=== PATIENT | female | born 1960 | race Caucasian/White ===

== ENCOUNTER 2019-04-23 14:37 | Emergency (ER) | payer MEDICAID, OTHER ==
[~2019-04-23] VITALS: Ht 167.6 cm; Wt 72.6 kg
--- OUTSIDE RECORDS SUMMARY | 2019-04-23 14:42 | XMS REPORT | Continuity of Care Document ---
Author Organization Unknown Address Unknown Allergies Active Description Code Type Severity Reaction Onset Reported/Identified Relationship to Patient Clinical Status Yes NKA Drug N/A N/A Yes NKA Drug N/A N/A Medications Medication Packaging Start Date Stop Date Route Dosage Sig levothyroxine 11/12/2015 11/25/2016 PO 0.125 mg / 1 tab levothyroxine 08/17/2016 01/13/2017 PO 125 mcg / 1 tab levothyroxine 11/25/2016 PO 0.125 mg / 1 tab levothyroxine 01/13/2017 08/30/2017 PO 125 mcg / 1 tab Problems Date Dx Coded Attending Type Code Diagnosis Diagnosed By 01/02/2015 Final V65.5 Person with Feared Complaint in Whom No Diagnosis Was Made 02/25/2015 LIZY FRANCE Final 244.9 Unspecified Hypothyroidism 11/27/2016 Torie Bishop Final E03.9 Hypothyroidism, unspecified Procedures There is no data. Results Test Result Range ANTI-SMOOTH MUSCLE AB - 05/12/11 13:54 F ACTIN ANTIBODY, IGG 5 NRG Surgical Pathology - 08/19/16 17:25 SURGICALPATH Diagnosis over-read by Jignesh Qiu MD. NRG TSH, REFLEX TO FREE T4 - 11/27/16 15:54 TSHR 3.86 mIU/mL 0.34-5.60 TSH - 03/18/18 14:15 TSH 58.83 mIU/L 0.40-4.50 Encounters ACCT No. Visit Date/Time Discharge Status Pt. Type Provider Facility Loc./Unit Complaint [id number] 11/25/2016 13:53:00 11/25/2016 23:59:59 CLS Outpatient [facility] [id number] 08/19/2016 14:21:14 08/19/2016 23:59:59 CLS Outpatient LIZY FRANCE [facility] MTO mole removals mg [id number] 08/17/2016 14:37:00 08/17/2016 23:59:59 CLS Outpatient LIZY FRANCE [facility] MTO f/u meds [id number] 11/12/2015 13:46:00 11/12/2015 23:59:59 CLS Outpatient [facility] [id number] 11/12/2015 13:27:00 11/12/2015 23:59:59 CLS Outpatient [facility] [id number] 11/11/2015 09:22:00 11/11/2015 23:59:59 CLS Outpatient [facility] [id number] 09/23/2015 08:31:00 09/23/2015 23:59:59 CLS Outpatient [facility] [id number] 02/25/2015 14:59:34 02/25/2015 23:59:59 CLS Outpatient Torie Bishop [facility] MT See orders/tm [id number] 02/21/2015 15:08:59 02/21/2015 23:59:59 CLS Outpatient LIZY FRANCE [facility] MTO Ck eye tender and blood/tm [id number] 11/28/2014 10:04:51 11/28/2014 23:59:59 CLS Outpatient LIZY FRANCE [facility] MTO Fu on foot, labs,/tm [facility] 11/27/2016 17:55:58 ACT Document Registration [id number] 10/28/2018 18:20:00 10/28/2018 23:59:59 CLS Outpatient DINA UMANA APRN [facility] [id number] 03/18/2018 13:05:00 Document Registration [id number] 11/27/2016 15:42:00 11/27/2016 23:59:00 DIS Outpatient Torie Bishop [facility] LAB LAB [id number] 08/19/2016 17:22:00 08/19/2016 23:59:00 DIS Outpatient LIZY FRANCE [id number] 02/25/2015 16:24:00 02/25/2015 23:59:00 DIS Outpatient MEISAQIB CERVANTESLIZY Guarantor/person DILEEP ROUTINE MEDICAL EXAM [id number] 11/28/2014 12:22:00 11/28/2014 23:59:00 DIS Outpatient LIZY FRANCE [facility] DILEEP ROUTINE MEDICAL EXAM [id number] 01/02/2015 23:37:00 Document Registration [id number] 05/12/2011 00:00:00 Document Registration
--- OUTSIDE RECORDS SUMMARY | 2019-04-23 14:42 | XMS REPORT ---
Author Author DINA UMANA Organization [facility] Address [address] [place] [address] Care Team Providers Care Plug Paster Name Role Phone DINA UMANA Unavailable PROBLEMS Type Condition ICD9-CM Code [id number] Code Onset Dates Condition Status SNOMED Code Problem Otitis externa of right ear, unspecified chronicity, unspecified type H60.91 Active 2144346 Problem Decreased hearing of both ears H91.93 Active 433556383 Problem Hypothyroidism (acquired) E03.9 Active 375113209 Problem Arthritis M19.90 Active 1169927 ALLERGIES No Known Allergies ENCOUNTERS Encounter Location Date Diagnosis [place] [address] [address] Apr, [facility] [address] [address] March, Hypothyroidism (acquired) E03.9 [facility]ALK [facility] [address] [place] [address] March, Otitis externa of right ear, unspecified chronicity, unspecified type H60.91 ; Decreased hearing of both ears H91.93 and Hypothyroidism (acquired) E03.9 [facility] [address] [address] Jan, Hypothyroidism (acquired) E03.9 [facility] [address] [address] Dec, Contact dermatitis, unspecified contact dermatitis type, unspecified trigger L25.9 [facility] [address] [place] [id number] [place] [address] Dec, Exposure to strep throat Z20.818 and Nasopharyngitis acute J00 [facility] [address] [place] [id number] [address] Sep, Hypothyroidism (acquired) E03.9 and Arthritis M19.90 [facility] [address] [place] [id number] [id number] Aug, Dental examination Z01.20 [facility] [address] [place] [id number] [address] Jun, [facility] [address] [place] [id number] [address] Jun, Bilateral acute serous otitis media, recurrence not specified H65.03 IMMUNIZATIONS No Known Immunizations SOCIAL HISTORY Never Assessed REASON FOR VISIT Establish Care/thyroid, needs refills on thyroid medication--Guillermo Mcdonnell MA PLAN OF CARE VITAL SIGNS Height 66 in 2017-10-14 Weight 166.4 lbs 2017-10-14 Temperature 97.7 degrees Fahrenheit 2017-10-14 Heart Rate 62 bpm 2017-10-14 Respiratory Rate 20 2017-10-14 BMI 26.85 kg/m2 2017-10-14 Blood pressure systolic 134 mmHg 2017-10-14 Blood pressure diastolic 78 mmHg 2017-10-14 MEDICATIONS Medication Instructions Dosage Frequency Start Date End Date Duration Status Levothyroxine Sodium 125 mcg Orally Once a day 1 tablet on an empty stomach in the morning 24h Active Flonase 50 MCG/ACT Nasally Once a day 1 spray in each nostril 24h Jun, 30 day(s) Active Diclofenac Sodium 50 MG Orally Twice a day 1 tablet with food or milk 12h Sep, Jan, 30 day(s) Active RESULTS No Results PROCEDURES No Known procedures INSTRUCTIONS MEDICATIONS ADMINISTERED No Known Medications MEDICAL (GENERAL) HISTORY Type Description Date Medical History graves disease Medical History Arthritis Surgical History partial hysterectomy Surgical History section x3 Surgical History carpet tunnel left wrirst Hospitalization History childbirth only
--- OUTSIDE RECORDS SUMMARY | 2019-04-23 14:42 | XMS REPORT ---
Author Author DINA UMANA Organization [facility] Address [address] [place] [address] Care Team Providers Care Finishing Tunnel Operator Name Role Phone DINA UMANA Unavailable PROBLEMS Type Condition ICD9-CM Code [id number] Code Onset Dates Condition Status SNOMED Code Problem Otitis externa of right ear, unspecified chronicity, unspecified type H60.91 Active 6346928 Problem Decreased hearing of both ears H91.93 Active 459677095 Problem Hypothyroidism (acquired) E03.9 Active 824463179 Problem Arthritis M19.90 Active 6552162 ALLERGIES No Information ENCOUNTERS Encounter Location Date Diagnosis [facility] [address] [address] March, Hypothyroidism (acquired) E03.9 [facility] [address] [address] March, Otitis externa of right ear, unspecified chronicity, unspecified type H60.91 ; Decreased hearing of both ears H91.93 and Hypothyroidism (acquired) E03.9 [facility] [address] [place] [id number] [place] [address] Jan, Hypothyroidism (acquired) E03.9 [facility] [address] [address] Dec, Contact dermatitis, unspecified contact dermatitis type, unspecified trigger L25.9 [facility] WALK IN [facility] [address] [address] Dec, Exposure to strep throat Z20.818 and Nasopharyngitis acute J00 [facility] [address] [place] [id number] [place] [address] Sep, Hypothyroidism (acquired) E03.9 and Arthritis M19.90 [facility] [address] [facility] [id number] [id number] Aug, Dental examination Z01.20 [facility] [address] [place] [address] [id number] [address] Jun, [facility] [address] [place] [id number] [address] Jun, Bilateral acute serous otitis media, recurrence not specified H65.03 IMMUNIZATIONS No Known Immunizations SOCIAL HISTORY Never Assessed REASON FOR VISIT lab results PLAN OF CARE VITAL SIGNS MEDICATIONS Unknown Medications RESULTS No Results PROCEDURES No Known procedures INSTRUCTIONS MEDICATIONS ADMINISTERED No Known Medications MEDICAL (GENERAL) HISTORY Type Description Date Medical History graves disease Medical History Arthritis Surgical History partial hysterectomy Surgical History section x3 Surgical History carpet tunnel left wrirst Hospitalization History childbirth only
--- OUTSIDE RECORDS SUMMARY | 2019-04-23 14:42 | XMS REPORT ---
Author Author JINNY HEARD Organization [facility] Address [address] [place] [address] Care Team Providers Care Vocational Rehabilitation Counselor Name Role Phone JINNY HEARD Unavailable PROBLEMS Type Condition ICD9-CM Code BEQ43-FV Code Onset Dates Condition Status SNOMED Code Problem Otitis externa of right ear, unspecified chronicity, unspecified type H60.91 Active 9555768 Problem Decreased hearing of both ears H91.93 Active 953341031 Problem Hypothyroidism (acquired) E03.9 Active 113715097 Problem Arthritis M19.90 Active 4451401 ALLERGIES No Known Allergies ENCOUNTERS Encounter Location Date Diagnosis [facility] [address] [address] Oct, [facility] IN [facility] [address] [address] Sep, Bacterial conjunctivitis H10.9 [place] [address] [address] Aug, [facility] [address] [address] Aug, [place] [address] [address] March, Hypothyroidism (acquired) E03.9 [facility] IN [facility] [address] [address] March, Otitis externa of right ear, unspecified chronicity, unspecified type H60.91 ; Decreased hearing of both ears H91.93 and Hypothyroidism (acquired) E03.9 [facility] [address] [address] Jan, Hypothyroidism (acquired) E03.9 [facility] [address], [place] [address] 04 Dec, 2017 Contact dermatitis, unspecified contact dermatitis type, unspecified trigger L25.9 [facility]ALK IN [facility] [address] [place] [address] 01 Dec, 2017 Exposure to strep throat Z20.818 and Nasopharyngitis acute J00 [place] [address] [place] [id number] [place] [address] Sep, Hypothyroidism (acquired) E03.9 and Arthritis M19.90 [facility] [address] [id number] Aug, Dental examination Z01.20 [place] [address] [place] [id number] [place] [address] Jun, [place] [address] [address] Jun, Bilateral acute serous otitis media, recurrence not specified H65.03 IMMUNIZATIONS No Known Immunizations SOCIAL HISTORY Never Assessed REASON FOR VISIT Left eye c/o started this morning JStrasserRN PLAN OF CARE Activity Details Follow Up w/ PCP Reason:if symptoms worsen or not improving VITAL SIGNS Height 66 in 2018-10-11 Weight 167.8 lbs 2018-10-11 Temperature 97.6 degrees Fahrenheit 2018-10-11 Heart Rate 78 bpm 2018-10-11 Respiratory Rate 20 2018-10-11 BMI 27.08 kg/m2 2018-10-11 Blood pressure systolic 110 mmHg 2018-10-11 Blood pressure diastolic 62 mmHg 2018-10-11 MEDICATIONS Medication Instructions Dosage Frequency Start Date End Date Duration Status Levothyroxine Sodium 125 mcg TAKE ONE TABLET BY MOUTH ONCE A DAY ON AN EMPTY STOMACH IN THE MORNING. 90 days Active Sulfacetamide Sodium 10 % Ophthalmic every 6 hrs 1 drop into affected eye 6h Sep, 7 days Active RESULTS No Results PROCEDURES No Known procedures INSTRUCTIONS MEDICATIONS ADMINISTERED No Known Medications MEDICAL (GENERAL) HISTORY Type Description Date Medical History graves disease Medical History Arthritis Surgical History partial hysterectomy Surgical History section x3 Surgical History carpet tunnel left wrirst Hospitalization History childbirth only
--- OUTSIDE RECORDS SUMMARY | 2019-04-23 14:42 | XMS REPORT ---
Author Author DINA UMANA Organization [facility] Address [address] [place] [address] Care Team Providers Care Athletic Monitor Name Role Phone DINA UMANA Unavailable PROBLEMS Type Condition ICD9-CM Code RCG63-UE Code Onset Dates Condition Status SNOMED Code Problem Otitis externa of right ear, unspecified chronicity, unspecified type H60.91 Active 9083248 Problem Decreased hearing of both ears H91.93 Active 181209525 Problem Hypothyroidism (acquired) E03.9 Active 831340447 Problem Arthritis M19.90 Active 7767394 ALLERGIES No Information ENCOUNTERS Encounter Location Date Diagnosis [facility] [address] [address] March, Hypothyroidism (acquired) E03.9 [facility] [address] [address] March, Otitis externa of right ear, unspecified chronicity, unspecified type H60.91 ; Decreased hearing of both ears H91.93 and Hypothyroidism (acquired) E03.9 [facility] [address] [place] [id number] [place] [address] Jan, Hypothyroidism (acquired) E03.9 [facility] [address] [address] Dec, Contact dermatitis, unspecified contact dermatitis type, unspecified trigger L25.9 [facility] [address] [address] Dec, Exposure to strep throat Z20.818 and Nasopharyngitis acute J00 [facility] [address] [id number] [place] [address] Sep, Hypothyroidism (acquired) E03.9 and Arthritis M19.90 [facility] [address] [id number] [id number] Aug, Dental examination Z01.20 [facility] [address] [place] [id number], [place] [address] Jun, [facility] [address] [facility] [id number] [address] Jun, Bilateral acute serous otitis media, recurrence not specified H65.03 IMMUNIZATIONS No Known Immunizations SOCIAL HISTORY Never Assessed REASON FOR VISIT Medication refill request PLAN OF CARE VITAL SIGNS MEDICATIONS Medication Instructions Dosage Frequency Start Date End Date Duration Status Flonase 50 MCG/ACT Nasally Once a day 1 spray in each nostril 24h Jun, 30 days Active RESULTS No Results PROCEDURES No Known procedures INSTRUCTIONS MEDICATIONS ADMINISTERED No Known Medications MEDICAL (GENERAL) HISTORY Type Description Date Medical History graves disease Medical History Arthritis Surgical History partial hysterectomy Surgical History section x3 Surgical History carpet tunnel left wrirst Hospitalization History childbirth only
--- OUTSIDE RECORDS SUMMARY | 2019-04-23 14:42 | XMS REPORT ---
Author Author LD FELIX [facility] Address [address] [place] [address] Care Team Providers Care Cemetery Warden Name Role Phone CALDERONLEILANI BOWMANLD WATTERS Unavailable PROBLEMS Type Condition ICD9-CM Code MXX90-SC Code Onset Dates Condition Status SNOMED Code Problem Otitis externa of right ear, unspecified chronicity, unspecified type H60.91 Active 5527826 Problem Decreased hearing of both ears H91.93 Active 606846619 Problem Hypothyroidism (acquired) E03.9 Active 502264569 Problem Arthritis M19.90 Active 6817061 ALLERGIES No Known Allergies ENCOUNTERS Encounter Location Date Diagnosis [facility] [address] [address] March, Hypothyroidism (acquired) E03.9 [facility] [address] [address] March, Otitis externa of right ear, unspecified chronicity, unspecified type H60.91 ; Decreased hearing of both ears H91.93 and Hypothyroidism (acquired) E03.9 [facility] [address] [address] Jan, Hypothyroidism (acquired) E03.9 [facility] [address] [address] Dec, Contact dermatitis, unspecified contact dermatitis type, unspecified trigger L25.9 [facility] WALK IN [facility] [address] [address] Dec, Exposure to strep throat Z20.818 and Nasopharyngitis acute J00 [facility] [address] [address] Sep, Hypothyroidism (acquired) E03.9 and Arthritis M19.90 [facility] [address] [facility] [id number] [id number] Aug, Dental examination Z01.20 [facility] [address] [facility] [id number] [address] Jun, [facility] [address] [facility] [id number], [place] [address] Jun, Bilateral acute serous otitis media, recurrence not specified H65.03 IMMUNIZATIONS No Known Immunizations SOCIAL HISTORY Never Assessed REASON FOR VISIT ear pain Pt c/o bilateral ear congestion and sinus congestion for at least a mo [facility] [facility] PLAN OF CARE Activity Details Follow Up prn Reason: VITAL SIGNS Height 66 in 2018-03-18 Weight 162.4 lbs 2018-03-18 Temperature 97.6 degrees Fahrenheit 2018-03-18 Heart Rate 82 bpm 2018-03-18 Respiratory Rate 18 2018-03-18 BMI 26.21 kg/m2 2018-03-18 Blood pressure systolic 100 mmHg 2018-03-18 Blood pressure diastolic 62 mmHg 2018-03-18 MEDICATIONS Medication Instructions Dosage Frequency Start Date End Date Duration Status Levothyroxine Sodium 125 mcg Orally Once a day 1 tablet on an empty stomach in the morning 24h 30 days Active Flonase 50 MCG/ACT Nasally Once a day 1 spray in each nostril 24h Jun, 30 days Active Ciprodex 0.3-0.1 % Otic Twice a day 4 drops into affected ear 12h March, 07 days Active RESULTS No Results PROCEDURES Procedure Date Ordered Result Body Site LAB NOT BILLED BY [facility] March 18, 2018 VENIPUNCT, ROUTINE* March 18, 2018 INSTRUCTIONS MEDICATIONS ADMINISTERED No Known Medications MEDICAL (GENERAL) HISTORY Type Description Date Medical History graves disease Medical History Arthritis Surgical History partial hysterectomy Surgical History section x3 Surgical History carpet tunnel left wrirst Hospitalization History childbirth only
--- OUTSIDE RECORDS SUMMARY | 2019-04-23 14:42 | XMS REPORT ---
Author Author DINA UMANA Organization [facility] Address [address] [place] [address] Care Team Providers Care Html Developer Name Role Phone DINA UMANA Unavailable PROBLEMS Type Condition ICD9-CM Code GFG11-WL Code Onset Dates Condition Status SNOMED Code Problem Decreased hearing of both ears H91.93 Active 852193888 Problem Otitis externa of right ear, unspecified chronicity, unspecified type H60.91 Active 6801583 Problem Arthritis M19.90 Active 6045294 Problem Hypothyroidism (acquired) E03.9 Active 923968555 ALLERGIES No Information ENCOUNTERS Encounter Location Date Diagnosis [place] [id number] [address] Jan, [facility] [address] [place] [id number] [place] [address] Oct, Bacterial conjunctivitis H10.9 [facility] IN [facility] [address] [address] Sep, Bacterial conjunctivitis H10.9 [facility] [address] [address] Aug, [facility] [address] [address] Aug, [facility] [address] [place] [id number] [place] [address] March, Hypothyroidism (acquired) E03.9 [facility] [address] [place] [id number] [place] [address] March, Otitis externa of right ear, unspecified chronicity, unspecified type H60.91 ; Decreased hearing of both ears H91.93 and Hypothyroidism (acquired) E03.9 [facility] [address] [place] [address] Jan, Hypothyroidism (acquired) E03.9 [facility] [address] [place] [id number] [place] [address] 04 Dec, 2017 Contact dermatitis, unspecified contact dermatitis type, unspecified trigger L25.9 [facility] [place] [address] [place] [id number] [place] [address] Dec, Exposure to strep throat Z20.818 and Nasopharyngitis acute J00 [place] [address] [address] Sep, Hypothyroidism (acquired) E03.9 and Arthritis M19.90 [facility] [address] [place] [id number] [place] [id number] Aug, Dental examination Z01.20 [place] [id number] [place] [address] Jun, [place] [address] [place] [id number] [place] [address] Jun, Bilateral acute serous otitis media, recurrence not specified H65.03 IMMUNIZATIONS No Known Immunizations SOCIAL HISTORY Never Assessed REASON FOR VISIT Refill request PLAN OF CARE VITAL SIGNS MEDICATIONS Medication Instructions Dosage Frequency Start Date End Date Duration Status Levothyroxine Sodium 125 mcg Orally Once a day 1 tablet on an empty stomach in the morning 24h Active RESULTS No Results PROCEDURES No Known procedures INSTRUCTIONS MEDICATIONS ADMINISTERED No Known Medications MEDICAL (GENERAL) HISTORY Type Description Date Medical History graves disease Medical History Arthritis Surgical History partial hysterectomy Surgical History section x3 Surgical History carpet tunnel left wrirst Hospitalization History childbirth only
--- OUTSIDE RECORDS SUMMARY | 2019-04-23 14:42 | XMS REPORT ---
Author Author KING PEDRO Organization [facility] Address [address] [place] [address] Care Team Providers Care Instrument Lens Inspector Name Role Phone PEDRO ROLDAN Unavailable PROBLEMS Type Condition ICD9-CM Code [id number] Code Onset Dates Condition Status SNOMED Code Problem Otitis externa of right ear, unspecified chronicity, unspecified type H60.91 Active 6047063 Problem Decreased hearing of both ears H91.93 Active 163419956 Problem Hypothyroidism (acquired) E03.9 Active 345064487 Problem Arthritis M19.90 Active 9438366 ALLERGIES No Information ENCOUNTERS Encounter Location Date Diagnosis [facility] [address] [address] Oct, Bacterial conjunctivitis H10.9 [facility] IN [facility] [address] [address] Sep, Bacterial conjunctivitis H10.9 [facility] [address] [address] Aug, [facility] [address] [place] [id number] [place] [address] Aug, [facility] [address] [address] March, Hypothyroidism (acquired) E03.9 [facility] [address] [address] March, Otitis externa of right ear, unspecified chronicity, unspecified type H60.91 ; Decreased hearing of both ears H91.93 and Hypothyroidism (acquired) E03.9 [facility] [address] [address] Jan, Hypothyroidism (acquired) E03.9 [facility] [id number] [place] [address] Dec, Contact dermatitis, unspecified contact dermatitis type, unspecified trigger L25.9 [facility] [address] [place] [address] Dec, Exposure to strep throat Z20.818 and Nasopharyngitis acute [address] [place] [address] [place] [id number] [place] [address] Sep, Hypothyroidism (acquired) E03.9 and Arthritis M19.90 [facility] [address] [id number] Aug, Dental examination Z01.20 [place] [address] [place] [id number] [place] [address] Jun, [place] [address] [place] [id number] [place] [address] Jun, Bilateral acute serous otitis media, recurrence not specified H65.03 IMMUNIZATIONS No Known Immunizations SOCIAL HISTORY Never Assessed REASON FOR VISIT possible pink eye PLAN OF CARE Activity Details Follow Up if not improving with PCP or reg follow up Reason: VITAL SIGNS MEDICATIONS Medication Instructions Dosage Frequency Start Date End Date Duration Status Polymyxin B-Trimethoprim 63772-6.1 UNIT/ML Ophthalmic Four times a day 1 drop into affected eye 6h Oct, 5 day(s) Active RESULTS No Results PROCEDURES No Known procedures INSTRUCTIONS MEDICATIONS ADMINISTERED No Known Medications MEDICAL (GENERAL) HISTORY Type Description Date Medical History graves disease Medical History Arthritis Surgical History partial hysterectomy Surgical History section x3 Surgical History carpet tunnel left wrirst Hospitalization History childbirth only
--- OUTSIDE RECORDS SUMMARY | 2019-04-23 14:42 | XMS REPORT ---
Author Author ANDREI MARTIN [facility] Address [address] [place] [address] Care Team Providers Care Controlled Area Checker Name Role Phone ANDREI MARTIN Unavailable PROBLEMS Type Condition ICD9-CM Code [id number] Code Onset Dates Condition Status SNOMED Code Problem Otitis externa of right ear, unspecified chronicity, unspecified type H60.91 Active 1711983 Problem Decreased hearing of both ears H91.93 Active 894378791 Problem Hypothyroidism (acquired) E03.9 Active 207582770 Problem Arthritis M19.90 Active 8989595 ALLERGIES No Known Allergies ENCOUNTERS Encounter Location Date Diagnosis [place] [address] [address] March, Hypothyroidism (acquired) E03.9 [facility] [address] [address] March, Otitis externa of right ear, unspecified chronicity, unspecified type H60.91 ; Decreased hearing of both ears H91.93 and Hypothyroidism (acquired) E03.9 [facility] [address] [address] Jan, Hypothyroidism (acquired) E03.9 [facility] [address] [address] Dec, Contact dermatitis, unspecified contact dermatitis type, unspecified trigger L25.9 [facility] [address] [address] Dec, Exposure to strep throat Z20.818 and Nasopharyngitis acute J00 [facility] [address] [address] Sep, Hypothyroidism (acquired) E03.9 and Arthritis M19.90 [facility] [address] [id number] [id number] Aug, [address] [facility] [address] [facility] [id number] [address] Jun, [facility] [address] [facility] [id number] [address] Jun, Bilateral acute serous otitis media, recurrence not specified H65.03 IMMUNIZATIONS No Known Immunizations SOCIAL HISTORY Never Assessed REASON FOR VISIT flu symptoms Pt has had a cough for several days and was exposed to strep so sh e wants him checked for strep TYLOR Mo PLAN OF CARE Activity Details Follow Up prn Reason: VITAL SIGNS Height 66 in 2017-12-16 Weight 163.6 lbs 2017-12-16 Temperature 97.9 degrees Fahrenheit 2017-12-16 Heart Rate 80 bpm 2017-12-16 Respiratory Rate 20 2017-12-16 BMI 26.40 kg/m2 2017-12-16 Blood pressure systolic 128 mmHg 2017-12-16 Blood pressure diastolic 76 mmHg 2017-12-16 MEDICATIONS Medication Instructions Dosage Frequency Start Date End Date Duration Status Diclofenac Sodium 50 MG Orally Twice a day 1 tablet with food or milk 12h Sep, Jan, 30 day(s) Active Levothyroxine Sodium 125 mcg Orally Once a day 1 tablet on an empty stomach in the morning 24h Active Flonase 50 MCG/ACT Nasally Once a day 1 spray in each nostril 24h Jun, 30 day(s) Active RESULTS Name Result Date Reference Range STREP A (IN HOUSE) 2017-12-16 STREP A negative Control + Lot # [id number] Exp date [id number] PROCEDURES Procedure Date Ordered Result Body Site STREP A ASSAY W/OPTIC Dec 16, 2017 INSTRUCTIONS MEDICATIONS ADMINISTERED No Known Medications MEDICAL (GENERAL) HISTORY Type Description Date Medical History graves disease Medical History Arthritis Surgical History partial hysterectomy Surgical History section x3 Surgical History carpet tunnel left wrirst Hospitalization History childbirth only
--- OUTSIDE RECORDS SUMMARY | 2019-04-23 14:42 | XMS REPORT ---
Author Author LAURIE ALLEN [facility] Address Unknown Care Team Providers Care Material Damage Adjuster Name Role Phone LAURIE ALLEN Unavailable PROBLEMS Type Condition ICD9-CM Code EBO71-II Code Onset Dates Condition Status SNOMED Code Problem Otitis externa of right ear, unspecified chronicity, unspecified type H60.91 Active 3231449 Problem Decreased hearing of both ears H91.93 Active 121607397 Problem Hypothyroidism (acquired) E03.9 Active 660354942 Problem Arthritis M19.90 Active 8953798 ALLERGIES No Known Allergies ENCOUNTERS Encounter Location Date Diagnosis [place] [address] [address] Apr, [place] [address] [address] March, Hypothyroidism (acquired) E03.9 [facility] [place] [address] [address] March, Otitis externa of right ear, unspecified chronicity, unspecified type H60.91 ; Decreased hearing of both ears H91.93 and Hypothyroidism (acquired) E03.9 [facility] [address] [address] Jan, Hypothyroidism (acquired) E03.9 [facility] [address] [place] [id number] [place] [address] Dec, Contact dermatitis, unspecified contact dermatitis type, unspecified trigger L25.9 [facility] [address] [place] [id number] [place] [address] Dec, Exposure to strep throat Z20.818 and Nasopharyngitis acute J00 [facility] [address] [place] [address] Sep, Hypothyroidism (acquired) E03.[address] [facility] [address] [place] [address] [id number] [id number] Aug, Dental examination Z01.20 [facility] [address] [place] [address] [id number] [address] Jun, [facility] [address] [place] [address] [id number] [address] Jun, Bilateral acute serous otitis media, recurrence not specified H65.03 IMMUNIZATIONS No Known Immunizations SOCIAL HISTORY Never Assessed REASON FOR VISIT [place] PLAN OF CARE Activity Details Follow Up prn Reason:Filling #8 VITAL SIGNS Blood pressure systolic 146 mmHg 2017-08-17 Blood pressure diastolic 95 mmHg 2017-08-17 MEDICATIONS Medication Instructions Dosage Frequency Start Date End Date Duration Status Flonase 50 MCG/ACT Nasally Once a day 1 spray in each nostril 24h Jun, 30 day(s) Active Levothyroxine Sodium 125 MCG Orally Once a day 1 tablet on an empty stomach in the morning 24h Active RESULTS No Results PROCEDURES Procedure Date Ordered Result Body Site LTD ORAL EVALUATION - PROBLEM FOCUS Aug 17, 2017 INTRAORL-PERIAPICAL 1 FILM [id number] Aug 17, 2017 INSTRUCTIONS MEDICATIONS ADMINISTERED No Known Medications MEDICAL (GENERAL) HISTORY Type Description Date Medical History graves disease Medical History Arthritis Surgical History partial hysterectomy Surgical History section x3 Surgical History carpet tunnel left wrirst Hospitalization History childbirth only
[2019-04-23] MEDS ORDERED: SULF1TAB35 PO (15:14)
--- NOTE | 2019-04-23 15:14 | ED Integumentary General ---
General Chief Complaint: Skin/Wound Problems Stated Complaint: SORE R FOOT Nursing Triage Note: pt verbalized foot pain, states right foot pain possible insect 3 days ago started as welt, "sore spot" , put a potato on area last night woke up with purple bruise Source: patient Exam Limitations: no limitations History of Present Illness Date Seen by Provider: Apr 23, 2019 Time Seen by Provider: 15:11 Initial Comments 58-year-old female who presents to the emergency room with complaints of right foot spider bite. Timing/Duration: yesterday Location: feet Possible Cause: insect bite Associated Symptoms: change in skin texture Allergies and Home Medications Home Medications Sulfamethoxazole/Trimethoprim 1 Each Tablet, 1 EACH PO BID Prescribed by: ERICK CASTELLANO on 04/23/19 1514 Patient Home Medication List Home Medication List Reviewed: Yes Review of Systems Review of Systems Constitutional: see HPI; No chills, No fever Skin: see HPI, other All Other Systems Reviewed Negative Unless Noted: Yes Past Hldpprk-Ffhqfl-Hqludd Hx Past Med/Social Hx: Reviewed Nursing Past Med/Soc Hx Patient Social History Recent Foreign Travel: No Contact w/Someone Who Travel: No Recent Infectious Disease Expo: No Family Medical History Reviewed Nursing Family Hx Physical Exam Vital Signs Vital Signs - First Documented 04/23/19 14:46 Temp 97.9 Pulse 80 Resp 16 B/P (MAP) 124/77 (93) Pulse Ox 98 O2 Delivery Room Air Capillary Refill : Less Than 3 Seconds General Appearance: WD/WN, no apparent distress Cardiovascular: normal peripheral pulses, regular rate, rhythm, no edema, no gallop, no JVD, no murmur Respiratory: chest non-tender, lungs clear, normal breath sounds, no re spiratory distress, no accessory muscle use Extremities: normal capillary refill Neurologic/Psychiatric: alert, normal mood/affect, oriented x 3 Skin: normal color, warm/dry Skin Problem Location: lower extremities (right inner foot) Skin Problem Character: erythema, tenderness, thickening, warm Progress/Results/Core Measures Results/Orders Vital Signs/I&O 04/23/19 04/23/19 14:46 15:21 Temp 97.9 98.0 Pulse 80 80 Resp 16 18 B/P (MAP) 124/77 (93) 125/75 (92) Pulse Ox 98 98 O2 Delivery Room Air Room Air Blood Pressure Mean: 93 Departure Impression Primary Impression: Infected insect bite Disposition: HOME, SELF-CARE Condition: Stable/Unchanged Departure-Patient Inst. Decision time for Depature: 15:14 Referrals: [facility] (PCP/Family) Primary Care Physician Patient Instructions: Insect Bites and Stings (DC) Add. Discharge Instructions: Take medication as directed. Follow-up with primary care provider within 1 week for recheck. Return back to the emergency room for worsening symptoms or concerns as needed. All discharge instructions reviewed with patient and/or family. Voiced understanding. Scripts Sulfamethoxazole/Trimethoprim (Bactrim Ds Tablet) 1 Each Tablet 1 EACH PO BID for 7 Days, #14 TAB Prov: ERICK CASTELLANO 04/23/19 ERICK CASTELLANO Apr 23, 2019 15:14
[2019-04-23 15:21] VITALS: BP 125/75
== END 2019-04-23 15:21 | disposition home or self-care (01) ==
LOC: ER 14:39
DX: S90.861A Insect bite (nonvenomous), right foot, initial encounter (principal); L08.9 Local infection of the skin and subcutaneous tissue, unspecified; W57.XXXA Bitten or stung by nonvenomous insect and other nonvenomous arthropods, initial encounter
CPT/HCPCS: 99282

== ENCOUNTER → 2019-05-11 | Outpatient (CLI) | payer MEDICAID ==
[~2019-05-11] MED LIST: SULF1TAB35 PO
== END ==
LOC: RAD 15:02
PROVIDERS: ATTEND Family Medicine
DX: Z12.31 Encounter for screening mammogram for malignant neoplasm of breast (principal)
CPT/HCPCS: 77067

== ENCOUNTER → 2019-05-29 | Outpatient (CLI) | payer MEDICAID ==
--- NOTE | 2019-05-29 20:04 | Diagnostic Imaging Report ---
INDICATION: Left breast density. Patient presents for additional views. CORRELATION is made with recent screening study from 05/11/2019. TECHNIQUE: 2-D and 3-D unilateral left diagnostic mammography was performed including spot compression CC and ML as well as conventional 9 degree lateral views. FINDINGS: Additional views confirm the presence of a tiny subscribe nodule in the outer retroareolar left breast at approximately the 3 to 4 o'clock location. This measures 3 mm in size. This may represent a tiny cyst. No other masses are seen. IMPRESSION: BI-RADS 0. Tiny circumscribed density in the outer retroareolar left breast. Further evaluation with ultrasound is recommended and will be performed today. ACR BI-RADS Category 0: Incomplete. (Needs additional imaging evaluation). Result letter will be mailed to the patient. Note: At least 10% of breast cancer is not imaged by mammography. Dictated by: Dictated on workstation # [id number]
--- NOTE | 2019-05-29 20:19 | Diagnostic Imaging Report ---
INDICATION: Left breast density. EXAM: Sonographic interrogation of the outer retroareolar left breast was performed. CORRELATION is made with diagnostic mammogram earlier this same day. FINDINGS: There is a small circumscribed hypoechoic mass at the 3 o'clock location of the left breast 2 cm from the nipple. This measures 3 mm in size and is most consistent with a tiny cyst. This does correspond with the mammographic density. IMPRESSION: BI-RADS category 2. There is a 3 mm simple cyst at the 3 o'clock location in the left breast corresponding to the mammographic density. The patient may return to routine annual screening mammography. ACR BI-RADS Category 2: Benign findings. Result letter will be mailed to the patient. Note: At least 10% of breast cancer is not imaged by mammography. Dictated by: Dictated on workstation # [id number]
== END ==
LOC: RAD 14:15
PROVIDERS: ATTEND Nurse Practitioner Community Health
DX: N60.02 Solitary cyst of left breast (principal)
CPT/HCPCS: 76642

== ENCOUNTER 2021-04-18 14:09 | Emergency (ER) | payer SELFPAY ==
[~2021-04-18] VITALS: Ht 167.7 cm; Wt 90.7 kg
--- NOTE | 2021-04-18 14:40 | ED General ---
General Stated Complaint: SWELLING IN FEET AND ANKLES/ SOB Source of Information: Patient Exam Limitations: No Limitations History of Present Illness Date Seen by Provider: Apr 18, 2021 Time Seen by Provider: 14:30 Initial Comments Patient is a 60-year-old female who presents to the emergency department today with a chief complaint of bilateral lower extremity swelling and feeling short of breath. Patient states that her symptoms have been coming on for a couple of days. Patient denies any recent illnesses such as fevers, chills, cough. She denies nausea or vomiting but had a little diarrhea couple of days ago. Patient describes some urgency and frequency but decreased amounts of urination. She has a history of Graves' disease with remote thyroid ablation. She is supposed to be on thyroid medication but ran out about a month ago. Patient is waiting to get an appointment [facility] to [facility]. No history of heart disease. She does take Prozac for depression. She is a smoker, has been smoking about 1/2 pack a day for the last several days. Patient states that her pain in her legs is worsened with walking. All other review of systems reviewed and negative except as stated. Timing/Duration: 2-3 Days Severity: Severe Associated Systoms: Shortness of Air Allergies and Home Medications Allergies Coded Allergies: No Known Drug Allergies (Unverified , 04/18/21) Home Medications Cephalexin 500 Mg Tablet, 500 MG PO TID Prescribed by: BRAD CHRISTINE on 04/18/21 1520 Levothyroxine Sodium 125 Mcg Capsule, 125 MCG PO DAILY Prescribed by: BRAD CHRISTINE on 04/18/21 1519 Sulfamethoxazole/Trimethoprim 1 Each Tablet, 1 EACH PO BID Prescribed by: ERICK CASTELLANO on 04/23/19 1514 Patient Home Medication List Home Medication List Reviewed: Yes Review of Systems Review of Systems Constitutional: see HPI EENTM: no symptoms reported Respiratory: short of breath Cardiovascular: edema Gastrointestinal: no symptoms reported Genitourinary: decreased output Musculoskeletal: other (Bilateral leg swelling) Skin: no symptoms reported All Other Systems Reviewed Negative Unless Noted: Yes Past Jjmekuj-Rumafv-Fhedle Hx Patient Social History Type Used: Cigarettes 2nd Hand Smoke Exposure: Yes Physical Exam Vital Signs Vital Signs - First Documented 04/18/21 04/18/21 14:25 15:37 Temp 36.2 Pulse 72 Resp 16 B/P (MAP) 139/90 (106) Pulse Ox 98 O2 Delivery Room Air Capillary Refill : Height, Weight, BMI Height: 5'6.00" Weight: 160lbs. oz. 72.831873yy; BMI Method:Stated General Appearance: No Apparent Distress, WD/WN Eyes: Bilateral Eye Normal Inspection, Bilateral Eye PERRL, Bilateral Eye EOMI Respiratory: Lungs Clear, Normal Breath Sounds, No Accessory Muscle Use, No Respiratory Distress Cardiovascular: Regular Rate, Rhythm, Other (Bilateral lower extremity edema pitting, 1-2+ to the knees. Calves are tight) Gastrointestinal: Non Tender, Soft Extremity: Normal Capillary Refill, Calf Tenderness (Leg tenderness), Pedal Edema Neurologic/Psychiatric: Alert, Oriented x3, No Motor/Sensory Deficits, Normal Mood/Affect Skin: Normal Color, Warm/Dry Progress/Results/Core Measures Suspected Sepsis SIRS Temperature: Pulse: Respiratory Rate: Laboratory Tests 04/18/21 14:45: White Blood Count 11.0 Blood Pressure / Mean: Laboratory Tests 04/18/21 14:45: Creatinine 1.27, Platelet Count 173 Results/Orders Lab Results Laboratory Tests Test 04/18/21 14:39 04/18/21 14:45 Range/Units Urine Color YELLOW Urine Clarity CLEAR Urine pH 6.0 5-9 Urine Specific [place] 1.025 H 1.016-1.022 Urine Protein NEGATIVE NEGATIVE Urine Glucose (UA) NEGATIVE NEGATIVE Urine Ketones NEGATIVE NEGATIVE Urine Nitrite NEGATIVE NEGATIVE Urine Bilirubin NEGATIVE NEGATIVE Urine Urobilinogen 0.2 < = 1.0 MG/DL Urine Leukocyte Esterase TRACE H NEGATIVE Urine RBC (Auto) NEGATIVE NEGATIVE Urine RBC NONE /HPF Urine WBC 5-10 H /HPF Urine Squamous Epithelial Cells 2-5 /HPF Urine Crystals NONE /LPF Urine Bacteria FEW H /HPF Urine Casts NONE /LPF Urine Mucus NEGATIVE /LPF Urine Culture Indicated YES White Blood Count 11.0 4.3-11.0 10^3/uL Red Blood Count 4.68 3.80-5.11 10^6/uL Hemoglobin 15.2 11.5-16.0 g/dL Hematocrit 46 35-52 % Mean Corpuscular Volume 98 80-99 fL Mean Corpuscular Hemoglobin 33 25-34 pg Mean Corpuscular Hemoglobin Concent 33 32-36 g/dL Red Cell Distribution Width 14.6 H 10.0-14.5 % Platelet Count 173 130-400 10^3/uL Mean Platelet Volume 11.9 9.0-12.2 fL Immature Granulocyte % (Auto) 1 % Neutrophils (%) (Auto) 33 L 42-75 % Lymphocytes (%) (Auto) 60 H 12-44 % Monocytes (%) (Auto) 5 0-12 % Eosinophils (%) (Auto) 2 0-10 % Basophils (%) (Auto) 0 0-10 % Neutrophils # (Auto) 3.6 1.8-7.8 X 10^3 Lymphocytes # (Auto) 6.6 H 1.0-4.0 X 10^3 Monocytes # (Auto) 0.5 0.0-1.0 X 10^3 Eosinophils # (Auto) 0.2 0.0-0.3 10^3/uL Basophils # (Auto) 0.0 0.0-0.1 10^3/uL Immature Granulocyte # (Auto) 0.1 0.0-0.1 10^3/uL Sodium Level 138 135-145 MMOL/L Potassium Level 3.7 3.6-5.0 MMOL/L Chloride Level 101 98-107 MMOL/L Carbon Dioxide Level 25 21-32 MMOL/L Anion Gap 12 5-14 MMOL/L Blood Urea Nitrogen 16 7-18 MG/DL Creatinine 1.27 0.60-1.30 MG/DL Estimat Glomerular Filtration Rate 43 BUN/Creatinine Ratio 13 Glucose Level 111 H 70-105 MG/DL Calcium Level 9.7 8.5-10.1 MG/DL Thyroid Stimulating Hormone (TSH) 58.39 H 0.35-4.94 UIU/ML Free Thyroxine < 0.40 L 0.70-1.48 NG/DL My Orders Orders - BRAD CHRISTINE MD Cbc With Automated Diff (04/18/21 14:36) Basic Metabolic Panel (04/18/21 14:36) Thyroid Stimulating Hormone (04/18/21 14:36) Free T4 (Free Thyroxine) (04/18/21 14:36) Ua Culture If Indicated (04/18/21 14:36) Chest 1 View, Ap/Pa Only (04/18/21 14:36) Urine Culture (04/18/21 14:39) Furosemide Tablet (Lasix Tablet) (04/18/21 15:30) Medications Given in ED Current Medications Medications Dose Ordered Sig/Satya Route Start Time Stop Time Status Last Admin Dose Admin Furosemide 20 mg ONCE ONCE PO 04/18/21 15:30 04/18/21 15:31 DC 04/18/21 15:36 20 MG Vital Signs/I&O 04/18/21 04/18/21 14:25 15:37 Temp 36.2 Pulse 72 70 Resp 16 16 B/P (MAP) 139/90 (106) 151/93 Pulse Ox 98 O2 Delivery Room Air Capillary Refill : Progress Note : Time: 15:30 Progress Note Patient's labs have been reviewed, her CBC is within normal limits her chemistry is also normal with a slightly depressed renal function. Her thyroid function is not back yet and the patient desires to be discharged before 4:00 as she has an appointment scheduled. Patient's urine does show a little bit of bacteria with some leukocyte esterase and white blood cells. We will treat her for urinary tract infection as well as refill her thyroxine 125 mcg. She was given a 20 mg Lasix pill here in the ED. [facility] will [facility] with [facility]. She is given good return precautions. She verbalizes understanding. All questions are sought and answered. Patient is stable for discharge. Diagnostic Imaging Diagonstic Imaging: Xray Plain Films/CT/US/NM/MRI: chest Comments NAME: SANDRA BURNETTE [facility] REC#: [id number] PT STATUS: REG ER : 1960 PHYSICIAN: BRAD CHRISTINE MD ADMIT DATE: 04/18/21/ER Draft Date of Exam:04/18/21 CHEST 1 VIEW, AP/PA ONLY INDICATION: Shortness of breath, retaining fluid. COMPARISON: None available TECHNIQUE: Single frontal radiograph of the chest dated 04/18/2021. FINDINGS: The cardiac silhouette is within the upper limits of normal in size. No significant pulmonary vascular congestion. The lungs are clear of focal pulmonary opacity. No pleural effusion. No pneumothorax. No acute osseous abnormality. IMPRESSION: No acute cardiopulmonary abnormality. Dictated on workstation # [id number] Dict: 04/18/21 1500 Trans: 04/18/21 1503 [facility] [id number] Interpreted by: AMILCAR GRANT MD Electronically signed by: Departure Impression Primary Impression: Bilateral lower extremity edema Additional Impressions: Urinary tract infection Qualified Codes: N30.00 - Acute cystitis without hematuria Hypothyroidism Qualified Codes: E89.0 - Postprocedural hypothyroidism Disposition: 01 HOME, SELF-CARE Condition: Stable Departure-Patient Inst. Decision time for Depature: 15:22 Referrals: [facility] (PCP/Family) Primary Care Physician Patient Instructions: Dependent Edema (DC) Add. Discharge Instructions: Start taking your levothyroxine again today. I have sent a prescription to your [facility] pharmacy. Once your thyroid function is straightened out you should start to lose some of that extra fluid. I have given you a dose of a water pill today called Lasix. This medication will last for about the next 6 hours and help you start peeing off some fluid. I have also given your prescription for antibiotics, you do have a mild urinary tract infection. Please call and follow-up with [facility]. Return to the emergency room for any worsening, concerning or emergent symptoms. Scripts Cephalexin (Cephalexin) 500 Mg Tablet 500 MG PO TID, #15 TAB Prov: BRAD CHRISTINE MD 04/18/21 Levothyroxine Sodium (Levothyroxine) 125 Mcg Capsule 125 MCG PO DAILY for 30 Days, #30 CAP Prov: BRAD CHRISTINE MD 04/18/21 BRAD CHRISTINE MD Apr 18, 2021 14:40
[2021-04-18 14:44] LABS: BILIRUBIN,URINE NEGATIVE (NEGATIVE); CLARITY,URINE CLEAR; COLOR,URINE YELLOW; GLUCOSE, URINE (UA) NEGATIVE (NEGATIVE); KETONES,URINE NEGATIVE (NEGATIVE); LEUKOCYTE ESTERASE ,URINE TRACE (NEGATIVE); NITRITE,URINE NEGATIVE (NEGATIVE); PROTEIN,URINE NEGATIVE (NEGATIVE)
[2021-04-18 14:52] LABS: BACTERIA,URINE FEW /HPF
[2021-04-18 14:56] LABS: BASOPHILS % (AUTO) 0 % (0-10); EOSINOPHILS # (AUTO) 0.2 10^3/uL (0.0-0.3); EOSINOPHILS % (AUTO) 2 % (0-10); HEMATOCRIT 46 % (35-52); HEMOGLOBIN 15.2 g/dL (11.5-16.0); LYMPHOCYTES # (AUTO) 6.6 X 10^3 (1.0-4.0); LYMPHOCYTES % (AUTO) 60 % (12-44); MEAN CORPUSCULAR HEMOGLOBIN 33 pg (25-34); MEAN CORPUSCULAR HGB CONC 33 g/dL (32-36); MEAN CORPUSCULAR VOLUME 98 fL (80-99); MEAN PLATELET VOLUME 11.9 fL (9.0-12.2); MONOCYTES # (AUTO) 0.5 X 10^3 (0.0-1.0); MONOCYTES % (AUTO) 5 % (0-12); NEUTROPHILS # (AUTO) 3.6 X 10^3 (1.8-7.8); NEUTROPHILS % (AUTO) 33 % (42-75); PLATELET COUNT 173 10^3/uL (130-400)
--- NOTE | 2021-04-18 15:03 | Diagnostic Imaging Report ---
INDICATION: Shortness of breath, retaining fluid. COMPARISON: None available TECHNIQUE: Single frontal radiograph of the chest dated 04/18/2021. FINDINGS: The cardiac silhouette is within the upper limits of normal in size. No significant pulmonary vascular congestion. The lungs are clear of focal pulmonary opacity. No pleural effusion. No pneumothorax. No acute osseous abnormality. IMPRESSION: No acute cardiopulmonary abnormality. Dictated by: Dictated on workstation # [id number]
[2021-04-18 15:06] LABS: CHLORIDE 101 MMOL/L (98-107); POTASSIUM 3.7 MMOL/L (3.6-5.0); SODIUM 138 MMOL/L (135-145)
[2021-04-18 15:07] LABS: CALCIUM 9.7 MG/DL (8.5-10.1); GLUCOSE 111 MG/DL (70-105)
[2021-04-18 15:09] LABS: CARBON DIOXIDE 25 MMOL/L (21-32)
[2021-04-18 15:11] LABS: CREATININE SERUM 1.27 MG/DL (0.60-1.30); GFR ESTIMATED 43
[2021-04-18 15:12] LABS: BUN/CREATININE RATIO 13
[2021-04-18] MEDS ORDERED: LEVO125C4 PO (15:19)
[2021-04-18] MEDS ORDERED: CEPH500T PO (15:20)
[2021-04-18] MEDS ORDERED: FUROSEMIDE 20 MG (LASIX) TAB PO ONE (15:30)
[2021-04-18 15:37] VITALS: BP 151/93
[2021-04-18 15:43] LABS: FREE T4 (FREE THYROXINE) < 0.40 NG/DL (0.70-1.48)
== END 2021-04-18 15:37 | disposition home or self-care (01) ==
LOC: EDUNIT# 14:09 → ER 14:13
DX: R60.0 Localized edema (principal); N39.0 Urinary tract infection, site not specified; E89.0 Postprocedural hypothyroidism; F32.9 Major depressive disorder, single episode, unspecified; F17.210 Nicotine dependence, cigarettes, uncomplicated
CPT/HCPCS: 36415; 71045; 80048; 81000; 84439; 84443; 85025; 87077; 87088

== ENCOUNTER → 2021-10-08 | Outpatient (CLI) | payer SELFPAY ==
[~2021-10-08] MED LIST changes: +CEPH500T PO; +LEVO125C4 PO; -SULF1TAB35 PO; +SULF1TAB38 PO
== END ==
LOC: CARD 13:00
PROVIDERS: ATTEND Physician Assistant
DX: I34.0 Nonrheumatic mitral (valve) insufficiency (principal); R60.0 Localized edema
CPT/HCPCS: 93306

== ENCOUNTER 2022-09-18 18:55 | Emergency (ER) | payer OTHER ==
[~2022-09-18] VITALS: Ht 167.7 cm; Wt 79.4 kg
--- NOTE | 2022-09-18 19:47 | Diagnostic Imaging Report ---
PROCEDURE: CT cervical spine without contrast. TECHNIQUE: Multiple contiguous axial images were obtained through the cervical spine without the use of intravenous contrast. Sagittal and coronal reformations were then performed. Auto Exposure Controls were utilized during the CT exam to meet ALARA standards for radiation dose reduction. INDICATION: Right neck pain which is progressive with associated dizziness and shoulder pain. CT CERVICAL SPINE: Multiple contiguous axial CT images of the cervical spine were obtained with sagittal and coronal reformatted images produced. FINDINGS: There is loss of normal cervical lordosis. Vertebral body heights and disc spaces are maintained. Prevertebral soft tissues are unremarkable, and there is no evidence of paraspinous hematoma. There is diffuse disc space narrowing with bulging most pronounced at the C5-C6 disc level. Endplate spurring in the upper thoracic spine results in probable moderate bilateral neural foraminal stenosis at the T1-T2 level, bilaterally. IMPRESSION: Loss of normal cervical lordosis which may be due to positioning or muscle spasm. There is, otherwise, no CT evidence of acute cervical spinal abnormality. There is probable moderate neural foraminal stenosis at T1-T2, bilaterally, is partially included on this study. Dictated by: Dictated on workstation # [id number]
--- NOTE | 2022-09-18 19:59 | ED Neck-Back Pain/Injury ---
General Chief Complaint: Head/Cervical Problems Stated Complaint: NECK PAIN/BURNING Nursing Triage Note: PT AMB TO ED BY POV WITH C/O R SIDED NECK PAIN X 4 DAYS. REPORTS PAIN GRADUALLY GOT WORSE, DENIES INJURY OR DIZZINESS. Allergies and Home Medications Allergies Coded Allergies: No Known Drug Allergies (Unverified , 04/18/21) Patient Home Medication List Cephalexin (Cephalexin) 500 Mg Tablet, 500 MG PO TID Prescribed by: BRAD CHRISTINE on 04/18/21 1520 Levothyroxine Sodium (Levothyroxine) 125 Mcg Capsule, 125 MCG PO DAILY Prescribed by: BRAD CHRISTINE on 04/18/21 1519 Sulfamethoxazole/Trimethoprim (Bactrim Ds Tablet) 1 Each Tablet, 1 EACH PO BID Prescribed by: ERICK CASTELLANO on 04/23/19 1514 Past Asiolds-Vngsun-Jmxwgw Hx Patient Social History Tobacco Use?: Yes Tobacco type used: Cigarettes Smoking Status: Current Everyday Smoker Use of E-Cig and/or Vaping dev: No Substance use?: No Alcohol Use?: No Pt feels they are or have been: No Immunizations Up To Date Influenza Vaccine Up-to-Date: No; Not Current First/Initial COVID19 Vaccinat: UNK COVID19 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: [employer] Seasonal Allergies Seasonal Allergies: No Past Medical History Surgery/Hospitalization HX: GRAVES, HTN, HIGH CHOLEST, ANXIETY C SECT X3, PARTIAL HYST Surgeries: No Respiratory: No Cardiac: No Neurological: No Genitourinary: No Gastrointestinal: No Musculoskeletal: No Endocrine: Yes Hypothyroidsim HEENT: No Cancer: No Psychosocial: Yes Depression Integumentary: No Blood Disorders: No Adverse Reaction/Blood Tranf: No Physical Exam Vital Signs Vital Signs - First Documented 09/18/22 19:05 Temp 36.8 Pulse 84 Resp 16 B/P (MAP) 147/66 (93) Pulse Ox 97 O2 Delivery Room Air Capillary Refill : Less Than 3 Seconds Height, Weight, BMI Height: 5'6.00" Weight: 160lbs. oz. 72.846168rs; 28.00 BMI Method:Stated Progress/Results/Core Measures Results/Orders My Orders Orders - LUIS MIGUEL BORGES DO Ct Cervical Spine Wo (09/18/22 19:13) Vital Signs/I&O 09/18/22 19:05 Temp 36.8 Pulse 84 Resp 16 B/P (MAP) 147/66 (93) Pulse Ox 97 O2 Delivery Room Air Blood Pressure Mean: [address] CERVICAL SPINE--PER RADIOLOGIST REPORT AT 1959 FINDINGS: There is loss of normal cervical lordosis. Vertebral body heights and disc spaces are maintained. Prevertebral soft tissues are unremarkable, and there is no evidence of paraspinous hematoma. There is diffuse disc space narrowing with bulging most pronounced at the C5-C6 disc level. Endplate spurring in the upper thoracic spine results in probable moderate bilateral neural foraminal stenosis at the T1-T2 level, bilaterally. IMPRESSION: Loss of normal cervical lordosis which may be due to positioning or muscle spasm. There is, otherwise, no CT evidence of acute cervical spinal abnormality. There is probable moderate neural foraminal stenosis at T1-T2, bilaterally, is partially included on this study. Reviewed: Reviewed by Me Departure Impression Primary Impression: Neck pain Disposition: 01 HOME, SELF-CARE Condition: Stable Departure-Patient Inst. Decision time for Depature: 20:00 Referrals: [facility] (PCP/Family) Primary Care Physician Patient Instructions: Neck Pain ED Add. Discharge Instructions: MOIST HEAT TO AREA AT 20 MINUTE INTERVALS FOLLOW UP WITH [facility] IN 3-4 DAYS IF NO IMPROVEMENT All discharge instructions reviewed with patient and/or family. Voiced understanding. Scripts Naproxen (Naproxen) 500 Mg Tablet. 500 MG PO BID, #20 TAB Prov: LUIS MIGUEL BORGES DO 09/18/22 Cyclobenzaprine HCl (Cyclobenzaprine HCl) 10 Mg Tablet 10 MG PO Q8H PRN for SPASMS, #15 TAB 0 Refills Prov: LUIS MIGUEL BORGES DO 09/18/22 LUIS MIGUEL BORGES DO Sep 18, 2022 19:59
[2022-09-18] MEDS ORDERED: CYCL10TA25 PO (20:01)
[2022-09-18] MEDS ORDERED: NAPR500T8 PO (20:01)
[2022-09-18] MEDS ORDERED: RX-CYCLOBENZAPRINE 10 MG (FLEXERIL) TAB PPK#3 PO STA (20:02)
[2022-09-18] MEDS ORDERED: RX-NAPROXEN (NAPROSYN) 250 MG TAB PPK#4 PO STA (20:02)
[2022-09-18 20:14] VITALS: BP 139/70
== END 2022-09-18 20:14 | disposition home or self-care (01) ==
LOC: EDUNIT# 18:55 → ER 18:58
DX: M54.2 Cervicalgia (principal); F17.210 Nicotine dependence, cigarettes, uncomplicated; Z28.311 Partially vaccinated for COVID-19
CPT/HCPCS: 72125